=== PATIENT | female | born 1970 | race Caucasian/White ===

== ENCOUNTER 2018-01-12 06:33 | Day surgery (SDC) | payer BC ==
[2018-01-12] MEDS ORDERED: Glycopyrrolate 0.2 MG/ML 2 ML SDV IV ONE (06:34)
[2018-01-12] MEDS ORDERED: Lidocaine 1% 30 ML SDV INJECT ONE ×2 (06:34→09:03)
[2018-01-12] MEDS ORDERED: Dexamethasone 4 MG/ML SDV IV ONE (06:34)
[2018-01-12] MEDS ORDERED: Propofol 200 MG/20 ML SDV IV ONE (06:34)
[2018-01-12] MEDS ORDERED: Neostigmine Methylsulfate 10 MG/10 ML MDV IV ONE (06:34)
[2018-01-12] MEDS ORDERED: Lidocaine 2% 20 ML MDV ONE (06:34)
[2018-01-12] MEDS ORDERED: Metoclopramide 10 MG/2 ML SDV IV ONE (06:34)
[2018-01-12] MEDS ORDERED: fentaNYL 250 MCG/5 ML SDV IV ONE (06:34)
[2018-01-12] MEDS ORDERED: Bupivacaine 0.5% 30 ML SDV INJECT ONE ×2 (06:34→09:03)
[2018-01-12] MEDS ORDERED: Rocuronium 50 MG/5 ML Vial IV ONE (06:34)
[2018-01-12] MEDS ORDERED: Midazolam 1 MG/ML 2 ML SDV IV ONE (06:34)
[2018-01-12] MEDS ORDERED: Ondansetron 4 MG/2 ML SDV IV ONE (06:34)
[2018-01-12] MEDS ORDERED: Ketorolac 30 MG/ML SDV IVPUSH ONE (06:34)
[2018-01-12] MEDS ORDERED: ceFAZolin 1 GM in Premix Bag 1 BAG IV ONE (07:00)
[2018-01-12] MEDS ORDERED: Lactated Ringers 1,000 ML IV SCH (07:00)
[2018-01-12] MEDS ORDERED: Sodium Chloride 0.9% 10 ML Syringe FLUSH PRN ×2 (07:00)
[2018-01-12] MEDS ORDERED: Bupivacaine 0.25%/EPINEPHrine 1:200,000 30 ML SDV ONE (07:44)
[2018-01-12] MEDS ORDERED: Lidocaine 1% 30 ML SDV ONE (07:45)
[2018-01-12] MEDS ORDERED: Bupivacaine 0.5% 30 ML SDV ONE (07:46)
[2018-01-12] MEDS ORDERED: Acetaminophen/oxyCODONE 325-5 MG Tab PO PRN (12:03)
--- NOTE | 2018-01-12 12:07 | PCM.OPNOTE ---
- General Post-Op/Procedure Note Date of Surgery/Procedure: 01/12/18 Operative Procedure(s): RIght foot haglunds resection/retrocalcaneal exostectomy with detachment and reattachment of achilles tendon Pre Op Diagnosis: right foot painful haglunds with calcific achilles tendonitis/ bone spur Post-Op Diagnosis: asya Anesthesia Technique: General LMA Primary Surgeon: Mi Carbone Anesthesia Provider: Constantino Lim EBL in mLs: 10 Complications: none Condition: Good Free Text/Narrative:: Pt tolerated procedure well and was transported to recovery with vascular status intact to right foot. Arthrex achilles speed bridge used to calcaneus for reattachment of achilles tendon. Well padded L&U splint applied with foot in plantarflexion.
--- NOTE | 2018-01-12 12:28 | OR ---
DATE: 01/12/2018 PREOPERATIVE DIAGNOSES: Right foot Lori's with retrocalcaneal exostosis/calcific tendinitis of the Achilles. POSTOPERATIVE DIAGNOSES: Right foot Lori's with retrocalcaneal exostosis/calcific tendinitis of the Achilles. PROCEDURES PERFORMED: Right foot Lori's resection with bone spur excision and detachment of the Achilles tendon with reattachment. ANESTHESIA: General with preoperative block of 10 mL 1:1 mixture of 1% lidocaine plain and 0.5% Marcaine plain. TOURNIQUET TIME: Pneumatic thigh tourniquet, 89 minutes. ESTIMATED BLOOD LOSS: Minimal. SPECIMEN REMOVED: None. COMPLICATIONS: None. INDICATIONS: Tre is a 47-year-old female who presents with pain at the back of her heel, where there is a large painful lump. She states that 2 years ago, she started having this pain in the back of the heel. She has tried multiple different treatment options including physical therapy, exercises, stretching, anti-inflammatories, heel lifts, different shoes, and activity modifications with no relief. She states it is getting worse over the last 2 years and has significantly worsened within the past year. She is now stating that it starts to swell up, or she can barely walk on it. X-rays of the right foot reveal a large retrocalcaneal exostosis present with also a small Lori's deformity. No signs of fracture. The patient voiced good understanding of the proposed procedure and possible complications and elects to have surgery at this time. DESCRIPTION OF THE PROCEDURE: The patient was taken to the operating room lying in the supine position. After adequate anesthesia induction as described above, the patient was then positioned in the prone position with proper padding placed to all sites. The right lower leg was prepped and draped in the usual sterile fashion. A pneumatic thigh tourniquet was inflated to 250 mmHg. Attention was then directed to the posterior aspect of the heel where a linear incision was made just medial to the bony prominence, just medial to the Achilles tendon, extending along the Achilles tendon and over the bony prominence. Sharp and blunt dissection was performed to the level of the Achilles tendon. The Achilles tendon was then incised in the midportion longitudinally from proximal to distal and reflected to expose the enthesophyte at the insertion site of the Achilles tendon. A mallet and osteotome as well as a sagittal saw were used to resect the enthesophyte and also the Lori bump at this time. A bone rasp was used to verify all rough edges were smoothed out. Fluoroscopy was used to verify all bony prominence was excised. This was also felt and examined intraoperatively. All osseous bodies were removed from within the Achilles tendon. The Arthrex Achilles SpeedBridge was then placed at the Achilles tendon insertion site to reattach it down to the calcaneus. The tendon was also repaired using suture from the Achilles SpeedBridge and 3-0 Vicryl. The Achilles tendon was noted to have firm attachment to the calcaneus at this time. Approximately, 75% of the Achilles tendon was detached and reattached to the calcaneus. The area was felt, and there was no longer noted to be any prominence in the area. Fluoroscopy was then again used for a final shot to verify all bony prominence was removed. The area was then flushed with copious amounts of sterile saline. Subcutaneous closure was completed with 3-0 Vicryl. The tourniquet was deflated. Skin closure was completed with 4-0 nylon, and bleeding from the surgical site was minimal. The right foot was dressed with Xeroform to the incision site, fluffs, Kerlix, Webril; and an L and U splint was applied with the foot in slight plantar flexion in relation to the leg. The patient tolerated the procedure well and was transferred to recovery with vital signs stable and vascular status intact as noted by immediate hyperemia upon deflation of the thigh tourniquet. The patient was then discharged home when she met hospital discharge requirements. [facility] /[id number]
--- NOTE | 2018-01-12 12:33 | CR ---
Single lateral interoperative film (OR fluoroscopic "spot" film) of a heel confirms large bone spur a t the insertion plantar aponeurosis base of the os calcis. Disruption of the soft tissues posteriorly region of the Achilles tendon. No foreign bodies. No sign of calcaneal fracture or dislocation.
--- NOTE | 2018-01-15 12:41 | EKG ---
01/12/2018 - BLAINE MEI - TIME: 8:15 a.m. FINDINGS: As per my reading, sinus rhythm at 87 with PVCs. [facility] /[id number]
== END 2018-01-12 13:30 | disposition home or self-care (01) ==
LOC: DL.SDS 06:33
PROVIDERS: ATTEND Podiatrist
DX: M92.61 Juvenile osteochondrosis of tarsus, right ankle (principal); M77.31 Calcaneal spur, right foot; E66.01 Morbid (severe) obesity due to excess calories; Z68.41 Body mass index [BMI] 40.0-44.9, adult; I48.0 Paroxysmal atrial fibrillation; E78.5 Hyperlipidemia, unspecified; E03.9 Hypothyroidism, unspecified; F41.9 Anxiety disorder, unspecified; E55.9 Vitamin D deficiency, unspecified; Q96.9 Turner's syndrome, unspecified; Z79.899 Other long term (current) drug therapy; Z88.2 Allergy status to sulfonamides; Z88.8 Allergy status to other drugs, medicaments and biological substances
CPT/HCPCS: C1713; J0690; J1100; J1885; J2250; J2405; J2704; J2710; J2765; J3010; J3490; J7120

== ENCOUNTER 2018-01-16 12:54 | Emergency (ER) | payer BC ==
[2018-01-16] MEDS ORDERED: Ondansetron 4 MG/2 ML SDV IV ONE (14:51)
--- NOTE | 2018-01-16 15:24 | EDM.PDOC ---
ED HPI GENERAL MEDICAL PROBLEM - General Chief Complaint: Abdominal Pain Stated Complaint: [id number] SIDE PAIN Time Seen by Provider: 01/16/18 15:00 Source of Information: Reports: Patient History Limitations: Reports: No Limitations - History of Present Illness INITIAL COMMENTS - FREE TEXT/NARRATIVE: This 47 yo female patient reports to the ED with upper abdominal pain. The patient reports her pain is sharp in nature and radiates through her right side to her back. The patient report that she had surgery on her foot last week. The patient was given a script for oxycodone after surgery, but reports that she felt terrible from the medication and stopped taking them on Tuesday (01/13/18). The patient reports her abdominal pain started on Tuesday morning and has been getting worse since that time. The patient reports that she has been nauseated along with the upper abdominal pain. The patient has a lengthy history of atrial fib and has had an ablation in the past. Onset Date: 01/14/18 Duration: Constant, Getting Worse Location: Reports: Abdomen Quality: Reports: Ache, Sharp Severity: Severe Improves with: Reports: None Worsens with: Reports: None Associated Symptoms: Reports: Nausea/Vomiting Left Upper Abdomen Pain Score (Numeric/FACES): 8 - Related Data Allergies Allergy/AdvReac Type Severity Reaction Status Date / Time atorvastatin [From Lipitor] Allergy Other Verified 01/12/18 07:37 Sulfa (Sulfonamide Allergy Hives Verified 01/12/18 07:37 Antibiotics) Home Meds: Home Meds Ergocalciferol (Vitamin D2) [Vitamin D2] 50,000 units PO WEEKLY 01/11/18 [ History] Levothyroxine 175 mcg PO ACBRK 01/11/18 [History] Metoprolol Tartrate [Lopressor] 50 mg PO DAILY 01/11/18 [History] Nystatin 1 applic TOP BID 01/11/18 [History] [place]-3/DHA/Epa/Fish Oil [[place]-3 Fish Oil 1,000 MG Sfgl] 1,000 mg PO DAILY [History] Ubidecarenone [Coenzyme Q10] 200 mg PO DAILY 01/11/18 [History] Past Medical History HEENT History: Reports: Other (See Below) Other HEENT History: [place], has hearing aides Cardiovascular History: Reports: Afib Respiratory History: Reports: None Gastrointestinal History: Reports: None Genitourinary History: Reports: None [employer] History: Reports: None Musculoskeletal History: Reports: Fracture, Other (See Below) Other Musculoskeletal History: right achilles tendon Neurological History: Reports: None Psychiatric History: Reports: Anxiety, Other (See Below) Other Psychiatric History: gets nervous Endocrine/Metabolic History: Reports: Hypothyroidism Hematologic History: Reports: None Immunologic History: Reports: None Oncologic (Cancer) History: Reports: None Dermatologic History: Reports: None - Infectious Disease History Infectious Disease History: Reports: Chicken Pox - Past Surgical History HEENT Surgical History: Reports: Naso-Sinus Surgery Other HEENT Surgeries/Procedures: deviated septum repair Cardiovascular Surgical History: Reports: Cardiac Ablation GI Surgical History: Reports: None Female Surgical History: Reports: Other (See Below) 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 ED EXAM, GI/ABD - Physical Exam Exam: See Below Exam Limited By: No Limitations General Appearance: Alert, WD/WN, Moderate Distress Eyes: Bilateral: Normal Appearance, EOMI Ears: Normal External Exam, Normal Canal, Hearing Grossly Normal, Normal TMs Nose: Normal Inspection, Normal Mucosa, No Blood Throat/Mouth: Normal Inspection, Normal Lips, Normal Teeth, Normal Gums, Normal Oropharynx, Normal Voice, No Airway Compromise Head: Atraumatic, Normocephalic Neck: Normal Inspection, Supple, Non-Tender, Full Range of Motion Respiratory/Chest: No Respiratory Distress, Lungs Clear, Normal Breath Sounds, No Accessory Muscle Use, Chest Non-Tender Cardiovascular: Normal Peripheral Pulses, Regular Rate, Rhythm, No Edema, No Gallop, No JVD, No Murmur, No Rub GI/Abdominal Exam: Tender (upper abdomen pain radiating to the back with nausea) (Female) Exam: Deferred Rectal (Female) Exam: Deferred Back Exam: Normal Inspection, Full Range of Motion, NT Extremities: Normal Inspection, Normal Range of Motion, Non-Tender, Normal Capillary Refill, No Pedal Edema Neurological: Alert, Oriented, CN II-XII Intact, Normal Cognition, Normal Gait, Normal Reflexes, No Motor/Sensory Deficits Psychiatric: Normal Affect, Normal Mood Skin Exam: Warm, Dry, Intact, Normal Color, No Rash Lymphatic: No Adenopathy Course - Vital Signs Last Recorded V/S: Last Vital Signs Temp 36.6 C 01/16/18 15:05 Pulse 78 01/16/18 15:05 Resp 17 01/16/18 15:05 BP 157/83 H 01/16/18 15:05 Pulse Ox 98 01/16/18 15:05 - Orders/Labs/Meds Orders: Active Orders 24 hr Category Date Time Status EKG Documentation Completion [RC] URGENT Care 01/16/18 14:51 Active AMYLASE [CHEM] Stat Lab 01/16/18 15:00 Received CBC WITH AUTO DIFF [HEME] Urgent Lab 01/16/18 15:00 Received COMPREHENSIVE METABOLIC PN,CMP [CHEM] Urgent Lab 01/16/18 15:00 Received LIPASE [CHEM] Stat Lab 01/16/18 15:00 Received TROPONIN I [CHEM] Urgent Lab 01/16/18 15:00 Received Meds: Medications Discontinued Medications Generic Name Dose Route Start Last Admin Trade Name Mayoq PRN Reason Stop Dose Admin Ondansetron HCl 4 mg 01/16/18 14:51 01/16/18 15:15 Zofran IV 01/16/18 14:52 4 mg ONETIME ONE Administration Departure - Departure Time of Disposition: 16:55 Disposition: DC/Tfer to Acute Hospital 02 Condition: Fair Clinical Impression: Cholecystitis - Discharge Information *PRESCRIPTION DRUG MONITORING PROGRAM REVIEWED*: Not Applicable *COPY OF PRESCRIPTION DRUG MONITORING REPORT IN PATIENT FABIAN: Not Applicable Forms: Interfacility Transfer EMTALA Care Plan Goals: Discussed the examination, lab and history with Geri Chiu. The patient was accepted by the ED provider. The patient will be transferred by [facility]. - My Orders Last 24 Hours: My Active Orders 01/16/18 14:51 EKG Documentation Completion [RC] URGENT 01/16/18 15:00 AMYLASE [CHEM] Stat CBC WITH AUTO DIFF [HEME] Urgent COMPREHENSIVE METABOLIC PN,CMP [CHEM] Urgent LIPASE [CHEM] Stat TROPONIN I [CHEM] Urgent - Assessment/Plan Last 24 Hours: My Active Orders 01/16/18 14:51 EKG Documentation Completion [RC] URGENT 01/16/18 15:00 AMYLASE [CHEM] Stat CBC WITH AUTO DIFF [HEME] Urgent COMPREHENSIVE METABOLIC PN,CMP [CHEM] Urgent LIPASE [CHEM] Stat TROPONIN I [CHEM] Urgent
[2018-01-16 15:42] LABS: ANION GAP 13.5; CHLORIDE,CL 97 mmol/L (101-111); SODIUM,NA 136 mmol/L (135-145)
[2018-01-16] MEDS ORDERED: Iopamidol 612 MG/ML 75 ML Bottle IVPUSH ONE (15:45)
[2018-01-16] MEDS ORDERED: Morphine 2 MG/ML Syringe IVPUSH ONE (15:50)
--- NOTE | 2018-01-16 16:34 | CT ---
Clinical history: 47-year-old 200 pound female upper abdominal pain and WBC 13,600. Scan technique: Volume acquisition of data from the abdomen and pelvis obtained without oral contrast but during intravenous ministration of 100 cc nonionic Isovue contrast (3 cc/s via injector) while t his obese patient was lying supine on the Siemens multi slice scanner [place], [place]. All data archived in the PACS system for storage, reformatting axial/sagittal/coron al planes and study. CONCLUSION: Abnormal. 1. Diseased gallbladder. Distended gallbladder with several large calcified intraluminal stones and s urrounding pericystic fluid. 2. Liver normal size, configuration and homogeneous fatty density. No abnormal dilatation of the intr a/extrahepatic biliary ducts. 3. Stomach, spleen, pancreas, adrenal glands and kidneys unremarkable. No renal cortical mass, nephro lithiasis or obstructive uropathy. Symmetrically distended normal appearing urinary bladder. 4. Multilevel lumbar disc disease/rotoscoliosis. Hypertrophic arthritic changes of the spine. Normal caliber aortoiliac vessels. 5. Normal uterus. No pelvic or abdominal mass lesion and no signs of inflammatory "dirty" peritoneal fat, mechanical bowel obstruction, ascites or free intraperitoneal air. 6. Normal cardiac silhouette. Lung bases clear CONCLUSION: Cholelithiasis/cholecystitis.
[2018-01-16] MEDS ORDERED: HYDROmorphone 0.5 MG/0.5 ML Syringe IVPUSH ONE (16:55)
--- NOTE | 2018-01-17 17:38 | EKG ---
01/16/2018 - BLAINE MEI - TIME: 2:53 p.m. FINDINGS: Sinus rhythm at 91 with ventricular bigeminy, probable posterior infarct. [facility] /[id number]
== END 2018-01-16 17:29 ==
LOC: DL.ED 12:54
DX: K81.9 Cholecystitis, unspecified (principal); Z88.2 Allergy status to sulfonamides; Z79.899 Other long term (current) drug therapy
CPT/HCPCS: 36415; 74177; 80053; 82150; 83690; 84484; 85025; 93005; 96374; 96375; 99285; J1170; J2270; J2405; Q9967